=== PATIENT | female | born 1955 | race Caucasian/White ===

== ENCOUNTER → 2021-05-11 13:13 | Outpatient (CLI) | payer MEDICARE, SELFPAY ==
--- NOTE | ~2021-05-11 | MM_ITS ---
EXAMINATION: MM screening gloria BI w mita HISTORY: Screening mammogram TECHNIQUE: Craniocaudal and mediolateral oblique 3-D tomosynthesis images were obtained and synthetic 2-D images were generated. CAD analysis was submitted and interpreted. COMPARISON: 12/20/2017 bilateral digital screening mammogram 11/30/2016 diagnostic right mammogram and limited right breast bilateral digital screening mammogram BREAST PARENCHYMAL COMPOSITION: There are scattered areas of fibroglandular density. FINDINGS: There is no evidence of suspicious mass, calcification, or architectural distortion to sugg est malignancy in either breast. There has been no suspicious interval change. IMPRESSION: 1. No mammographic evidence of malignancy. 2. Recommend routine screening mammography in one year. BI-RADS Category 1: Negative Reviewed, dictated and finalized at location A.
== END ==
PROVIDERS: PCP Family Medicine; Visit Provider Nurse Practitioner
DX: Z12.31 Encounter for screening mammogram for malignant neoplasm of breast (principal)
CPT/HCPCS: 77063; 77067

== ENCOUNTER → 2021-05-11 13:15 | Outpatient (CLI) | payer MEDICARE, SELFPAY ==
--- NOTE | ~2021-05-11 | US_ITS ---
EXAMINATION: US thyroid DATE: 05/11/2021 13:58 INDICATION: Nontoxic multinodular goiter TECHNIQUE: Multiple ultrasound images of the thyroid were obtained. COMPARISON: None. FINDINGS: The right thyroid lobe measures 6.5 x 2.4 x 2.2 cm. The left thyroid lobe measures 6.8 x 3.1 x 2.0 c m. No interval change in size of the 2 largest thyroid nodules which measure 3.[address] maximal diame ter on the left and 2.6 cm on the right, both with previous biopsies performed on 01/10/2017 demonstra ting benign pathology. Also unchanged is a 1.1 cm rim calcified TI-RADS 4 nodule in the mid right thy roid. Interval decrease in size of a previously 1.7 cm, currently 1.4 cm mixed solid and cystic TI RA DS 3 nodule in the mid left thyroid. There are a few additional <1.4 cm TI RADS 3 and TI RADS 4 bila teral thyroid nodules. IMPRESSION: 1. Multinodular goiter with stable appearance of the largest and most concerning thyroid nodules, the largest 2 of which have demonstrated prior benign biopsies. There are a few new smaller thyroid nodu les for which annual follow-up would be indicated. Reviewed, dictated and finalized at location A. IMPRESSION: 1. Multinodular goiter with stable appearance of the largest and most concernin g thyroid nodules, the largest 2 of which have demonstrated prior benign biopsi es. There are a few new smaller thyroid nodules for which annual follow-up woul d be indicated.
== END ==
PROVIDERS: PCP Family Medicine; Visit Provider Otolaryngology
DX: E04.2 Nontoxic multinodular goiter (principal)
CPT/HCPCS: 76536

== ENCOUNTER → 2021-07-07 11:03 | Outpatient (CLI) | payer MEDICARE, SELFPAY ==
--- NOTE | ~2021-07-07 | DEXA_ITS ---
Bone Density Report Name: CASSY SANDOVAL Age: 66 Sex: Female Ethnicity: White Date of : 1955 Indication: osteopenia; height loss; postmenopausal Referring Provider: Lou Del Valle Study: Bone densitometry was performed. Exam Date: July 07, 2021 Accession number: [id number] Bone Density: Region BMD T-score Z-score Classification AP Spine (L1-L4) 1.004 -0.4 1.6 Normal Femoral Neck (Left) 0.574 -2.5 -0.8 Osteoporosis Total Hip (Left) 0.749 -1.6 -0.2 Osteopenia Femoral Neck (Right) 0.604 -2.2 -0.5 Osteopenia Total Hip (Right) 0.748 -1.6 -0.2 Osteopenia Total Hip Mean 0.749 -1.6 -0.2 Osteopenia World Health Organization criteria for BMD impression classify patients as: Normal (T-score at or above -1.0), Osteopenia (T-score between -1.0 and -2.5), or Osteoporosis (T-score at or below -2.5). 10-year Fracture Risk: FRAX not reported because: Some T-score for Spine Total or Hip Total or Femoral Neck at or below -2.5 Previous Exams: Region Exam Age BMD T-score BMD Change BMD Change Date g/cm2 vs Baseline vs Previous AP Spine(L1-L4) 07/07/2021 66 1.004 -0.4 0.027* 0.004 11/19/2016 61 0.999 -0.4 0.022 0.022 09/19/2012 57 0.977 -0.6 Total Hip(Left) 07/07/2021 66 0.749 -1.6 -0.156 -0.004 11/19/2016 61 0.753 -1.5 -0.152 -0.024 09/19/2012 57 0.777 -1.4 -0.128 -0.128 01/22/2004 48 0.906 -0.3 Total Hip(Right) 07/07/2021 66 0.748 -1.6 -0.160 0.005 11/19/2016 61 0.743 -1.6 -0.165 -0.016 09/19/2012 57 0.759 -1.5 -0.149 -0.149 01/22/2004 48 0.908 -0.3 *Denotes significance at 95% confidence level, LSC for AP Spine = 0.022 g/cm2, LSC for Total Hip = 0.027 g/cm2 Clinical Information Provided by Patient: Smokes Has used the following medications: Vitamin D Patient maximum height was 67.7 Menopause Age: 50 Does not regularly consume dairy products Drinks caffeinated beverages Onset of menses at age 10 Number of children 0 Impression: The patient has osteoporosis, based on the Left Femoral Neck T-score. The patient has risk factors, including: smoking. No significant bone loss was observed. Discussion: INCREASED RISK OF FRACTURE. BONE DENSITY IS UNDESIRABLY LOW AT ONE OR MORE SKELETAL SITES, CONSISTENT WITH POSTMENOPAUSAL OSTEOPOROSIS. This patient's lowest T-score
== END ==
PROVIDERS: PCP Family Medicine; Visit Provider Nurse Practitioner
DX: Z78.0 Asymptomatic menopausal state (principal); M81.0 Age-related osteoporosis without current pathological fracture; M85.851 Other specified disorders of bone density and structure, right thigh
CPT/HCPCS: 77080

== ENCOUNTER 2023-05-26 09:02 | Outpatient (CLI) | payer MEDICARE, SELFPAY ==
--- NOTE | ~2023-05-26 | PE_ITS ---
EXAMINATION: PET skull to mid thigh DATE: 05/26/2023 11:05 INDICATION: Solitary pulmonary nodule TECHNIQUE: Blood glucose level was 106 mg/dL. 10.129 mCi of 18-fluorodeoxyglucose (18-FDG) was admini stered i.v. Low dose computed tomography (CT) images were acquired from the base of the brain to the proximal thighs for attenuation correction and anatomic localization. Positron emission tomography (P ET) images were acquired in the same distribution beginning 66 minutes after injection. Images includ ing fused PET/CT images were reconstructed in axial, coronal, and sagittal planes. Automated exposure control technique was employed. The dose-length product was 814.28mGy-cm. COMPARISON: None FINDINGS: Head/neck: There is symmetric increased activity in the oral cavity, inguinal tonsils, laryngeal muscles and ocu lar muscles without CT correlate, likely physiologic. Relatively symmetric pattern of multiple foci o f prominent increased FDG uptake in the fat primarily in the posterior upper cervical paraspinal fat and more caudally in the bilateral supraclavicular regions without radiologic correlate which is atyp ical distribution for brown fat. No pathologically enlarged cervical lymphadenopathy. Chest: Additional extensive symmetric pattern of multiple foci of increased FDG uptake in the periaortic fat , in the paraspinal and posterior intercostal fat and in the anterior intercostal fat along the later al margin of the sternum, all without radiologic correlate and again in a typical distribution for br own fat. Mild emphysema. 1.4 x 0.6 cm right apical nodule without evident FDG activity. Additional sm aller and more caudal 6 mm right upper lobe nodule also without evident FDG activity. No other suspic ious pulmonary nodules, pneumonia or pleural effusion. Arch size is normal. No pericardial effusion. Thoracic aorta is normal in caliber. No pathologically enlarged thoracic lymphadenopathy. Abdomen/pelvis/proximal thighs: Physiologic renal accumulation and excretion of FDG activity in the kidneys, bladder and along portio ns of ureters. Normal degree and heterogenous pattern of increased uptake throughout the liver withou t radiologic correlate or dominant FDG avid lesion. The gallbladder, pancreas, spleen and bilateral a drenal glands are normal. Mild uptake scattered throughout the bowels without radiologic correlate, a lso likely physiologic. Normal appendix. No other abnormal foci of increased FDG uptake or pathologic ally enlarged lymphadenopathy in the abdomen, pelvis or proximal thighs. Musculoskeletal: Severe cervical and lumbosacral spondylosis with mild to moderate spondylosis of the intervening thor acic and lumbar spine. The neck L1 compression fracture with 20% anterior vertebral body height loss. Mild likely degenerative uptake at the bilateral ischial tuberosities. Single small region of mild i ncreased FDG uptake at the base of the left lesser trochanter with maximal SUV of 3.0 cm correspondin g lytic or blastic bone lesion. IMPRESSION: 1. Mild emphysema with no evident FDG activity associated with a couple right upper lobe pulmonary no dules. While reassuring would recommend 6 month follow-up low-dose noncontrast chest CT with comparis on with any prior outside imaging. 2. Symmetric pattern of numerous foci of increased FDG uptake in the soft tissues of the neck, chest wall and para-aortic fat with typical distribution for brown fat. 3. Indeterminate small region of mild increased FDG uptake at the base of the right greater trochante r which is without radiologic correlate. Malignancy is unlikely in the absence of a known primary mal ignancy or additional bone lesions but if there is clinical concern could consider further evaluation with pre and postcontrast MRI. Reviewed, dictated and finalized at location A. Electronically signed by Oh Roberts
[2023-05-26 09:32] LABS: Glucose Point of Care 106 mg/dl (65-105)
== END 2023-05-26 09:03 | disposition home or self-care (01) ==
PROVIDERS: PCP Family Medicine; Visit Provider Family Medicine
DX: R91.1 Solitary pulmonary nodule (principal); J43.9 Emphysema, unspecified; R91.8 Other nonspecific abnormal finding of lung field
CPT/HCPCS: 78815; A9552

== ENCOUNTER 2023-11-15 07:26 | Outpatient (CLI) | payer MEDICARE, SELFPAY ==
[2023-11-15 08:06] LABS: Alanine Aminotransferase 26 U/L (6-35); Albumin Level 4.9 g/dL (3.5-5.1); Alkaline Phosphatase 110 U/L (38-126); Anion Gap 8 mmol/L (4-12); Aspartate Amino Transferase 89 U/L (14-36); Bilirubin,Total 0.8 mg/dL (0.2-1.3); Blood Urea Nitrogen 28 mg/dL (7-17); Calcium 10.3 mg/dL (8.4-10.2); Carbon Dioxide 28 mmol/L (22-30); Chloride 103 mmol/L (98-107); Estimated Glomerular Filt Rate > 60; Glucose 107 mg/dL (65-110); Potassium 3.7 mmol/L (3.4-5.0); Sodium 139 mmol/L (137-145)
== END 2023-11-15 07:27 | disposition home or self-care (01) ==
LOC: ANHLAB 07:28
PROVIDERS: PCP Family Medicine; Visit Provider Family Medicine
DX: R74.01 Elevation of levels of liver transaminase levels (principal); I10 Essential (primary) hypertension
CPT/HCPCS: 36415; 80053

== ENCOUNTER 2024-05-31 06:49 | Outpatient (CLI) | payer MEDICARE, SELFPAY ==
[2024-05-31 08:23] LABS: Basophils Absolute Auto 0.1 K/mm3 (0.0-0.1); Basophils Percent Auto 0.8 % (0.2-1.2); Eosinophils Absolute Auto 0.1 K/mm3 (0-0.3); Eosinophils Percent Auto 1.9 % (0-4.4); Hematocrit 43.3 % (37.0-47.0); Hemoglobin 14.6 g/dL (12.0-15.0); Immature Granulocyte Absolute 0.03 K/mm3 (0.00-0.031); Immature Granulocyte Percent A 0.5 % (0-0.5); Lymphocytes Absolute Auto 2.32 K/mm3 (0.9-3.2); Lymphocytes Percent Auto 36.4 % (18.3-44.2); Mean Corpuscular HGB Conc 33.7 g/dl (32-36); Mean Corpuscular Hemoglobin 32.1 pg (26-34); Mean Corpuscular Volume 95.2 fl (80-100); Mean Platelet Volume 10.9 fl (7.4-10.4); Monocytes Absolute Auto 0.5 K/mm3 (0.1-0.6); Monocytes Percent Auto 7.8 % (2.6-8.5); Neutrophils Absolute Auto 3.4 K/mm3 (1.3-6.7); Neutrophils Percent Auto 52.6 % (45.5-73.1); Platelet Count Result 247 k/mm3 (150-375); Red Blood Count 4.55 M/mm3 (4.2-5.4); Red Cell Distribution Width 13.5 % (11.5-14.5); White Blood Count 6.4 K/mm3 (4.5-10.0)
[2024-05-31 09:33] LABS: Cholesterol 179 mg/dL (0-200); HDL Direct 94 mg/dL; Triglycerides 74 mg/dL (<150)
[2024-05-31 09:44] LABS: LDL Cholesterol Direct 63 mg/dL
[2024-05-31 09:53] LABS: Free T4 Free Thyroxine 1.12 ng/mL (0.78-2.19)
[2024-06-01 09:23] LABS: Triiodothyronine T3 Free 3.2 pg/mL (2.3-4.2)
[2024-06-06 14:38] LABS: Vitamin D 1,25 (OH)2 Total 49 pg/mL (18-72); Vitamin D2 1,25 (OH)2 <8 pg/mL; Vitamin D3 1,25 (OH)2 49 pg/mL
== END 2024-05-31 06:50 | disposition home or self-care (01) ==
LOC: ANHLAB 06:54
PROVIDERS: PCP Family Medicine; Visit Provider Nurse Practitioner Family
DX: E04.2 Nontoxic multinodular goiter (principal); E78.5 Hyperlipidemia, unspecified; I10 Essential (primary) hypertension; E55.9 Vitamin D deficiency, unspecified
CPT/HCPCS: 36415; 80061; 82652; 84439; 84443; 84481; 85025

== ENCOUNTER 2024-06-04 11:33 | Outpatient (CLI) | payer MEDICARE, SELFPAY ==
[2024-06-04 19:33] LABS: Alanine Aminotransferase 30 U/L (6-35); Albumin Level 4.5 g/dL (3.5-5.1); Alkaline Phosphatase 126 U/L (38-126); Anion Gap 7 mmol/L (4-12); Aspartate Amino Transferase 119 U/L (14-36); Bilirubin,Total 0.5 mg/dL (0.2-1.3); Blood Urea Nitrogen 22 mg/dL (7-17); Calcium 9.5 mg/dL (8.4-10.2); Carbon Dioxide 30 mmol/L (22-30); Chloride 102 mmol/L (98-107); Estimated Glomerular Filt Rate > 60; Glucose 95 mg/dL (65-110); Potassium 3.6 mmol/L (3.4-5.0); Sodium 139 mmol/L (137-145)
[2024-06-04 21:56] LABS: Hemoglobin A1C 5.8 % (<5.7)
== END 2024-06-04 11:34 | disposition home or self-care (01) ==
LOC: ANHGOSHLAB 11:34
PROVIDERS: PCP Family Medicine; Visit Provider Family Medicine
DX: R73.9 Hyperglycemia, unspecified (principal); I10 Essential (primary) hypertension
CPT/HCPCS: 36415; 80053; 83036

== ENCOUNTER 2024-06-07 10:21 | Outpatient (CLI) | payer MEDICARE, SELFPAY ==
--- NOTE | ~2024-06-07 | CT_ITS ---
Clinical Indication: Nonspecific abnormal finding of lung field, pulmonary nodules CT Scan of the Chest with Contrast: Technique: Contiguous sections were acquired throughout the chest after intravenous administration of 75 cc of Omnipaque 350. Dose reduction technique was used on this scan by utilizing automated exposu re control and iterative reconstruction technique. The dose-length product (DLP) was 155.49 mGy-cm. COMPARISON: PET/CT dated 05/26/2023 stable 6 mm right upper lobe pulmonary nodule (axial image 38). Findings: There is no evidence of any significant mediastinal, hilar or axillary lymphadenopathy. There is no f illing defect in the pulmonary arterial tree to suggest pulmonary embolus. There is no evidence of ao rtic dissection or aneurysm. There is no evidence of pleural or pericardial effusion. Moderate to advanced emphysema present. Stable probable focal scarring versus nodule at the right taya g apex. Images through the upper abdomen reveal no abnormalities. Chronic compression deformity of L2 noted. Impression: Stable subcentimeter right upper lobe pulmonary nodules, as detailed above. Moderate to advanced emphysema. Reviewed, dictated and finalized at location . TRANSITIONAL CARE Impression: Stable subcentimeter right upper lobe pulmonary nodules, as detailed above. Moderate to advanced emphysema.
[2024-06-07 10:57] LABS: Estimated Glomerular Filt Rate > 60
== END 2024-06-07 10:22 | disposition home or self-care (01) ==
LOC: MICIMG 10:22
PROVIDERS: PCP Family Medicine; Visit Provider Family Medicine
DX: R91.8 Other nonspecific abnormal finding of lung field (principal); J43.9 Emphysema, unspecified
CPT/HCPCS: 71260; Q9967

== ENCOUNTER 2024-12-04 09:04 | Outpatient (CLI) | payer MEDICARE, SELFPAY ==
--- OUTSIDE RECORDS SUMMARY | 2024-12-04 09:12 | XMS_ITS | Continuity of Care Document ---
Author Organization [facility] [place] Address [address] [place] [address] [address] [place] [address] Phone Care Team Providers Care Tree And Shrub Technician Name Role Phone Mary Akins Unavailable Unavailable Procedures Procedure Date Eye Exam & Treatment Refraction Eye Exam & Treatment Refraction Office/outpatient Visit, Est Optic Nerve Topography Optic Nerve Topography Eye Exam Established Pt Fundus Photography W/ Report Refraction Advance Directives Directive Yes / No Effective Date File Name No Information Encounters Encounter Description Practice Location Reason(s) For Visit Diagnoses Date Provider Providers Copied on Encounter [facility], [address] [place] [address] [address], [place], [place], [id number], tel:[phone] [facility] No Information 7-201 0 Mable Jerome [address] , [address], [place], [address], [place]. tel:[phone] [facility], [address] [place] [address] [address], [place], [place], [id number], [place] tel:[phone] [facility] No Information 0-200 9 Mable Jerome [address] , [address], [place], [address], [place]. tel:[phone] Office/outpat ient Visit, Est [facility], [address] [place] [address] [address], [place], [place], [id number], tel:[phone] [facility] No Information Dec-0 7-200 7 Mable Jerome [address] , [address], [place], [place], [facility], . tel:[phone] [facility], [address] [place] [address] [address], [place], [place], [id number], tel:[phone] [facility] No Information Mar-2 0-200 7 Mable Jerome [address] , [address], [place], [place], [facility], . tel:[phone] Referring Provider: Mary Driver, [address], [place], [facility]. tel:[phone] [facility], [address] [place] [address] [address], [place], [place], [id number], tel:[phone] [facility] No Information Feb-0 9-200 7 Mable [facility] [address] , [address], [place], [place], [facility], . tel:[phone] Referring Provider: Mary Driver, [address], [place], [place], [facility]. tel:[phone] Family History Family Member Type Diagnosis Age At Onset No Information Payers Payer name Insurance type Covered democrat ID Sky laukandi(s) [employer] Plan [id number] Social History Type Description Quantity Date Captured Comments Sex Female Smoking Status No Information Chief Complaint And Reason For Visit No Information Reason For Referral Reason For Referral No Information History Of Present Illness Encounter Date Complaint History Of Prese nt Illness No Information Functional Status Date Functional Assessmen t No Information Instructions Date Instruction Additional Infor mation No Information Assessments Type Assessment Date No Information Patient Care Teams Name Effective Dates (start - stop) Status Members No Information
--- OUTSIDE RECORDS SUMMARY | 2024-12-04 09:12 | XMS_ITS | Clinical Summary ---
Author Organization [facility] [address] Address [address] [place] [address] Care Team Providers Care Bi Specialist Name Role Phone Mehul Montelongo Primary Care Provider [phone] Allergies Active Allergy Reactions Criticality Noted Date Comments Progesterone Micronized Other (See comments) Low Soxadte-Jbv-Hcl Reductase Inhibitors Muscle pain Medium 03/19/2014 Unclassified Drug Shortness of breath High 4 Medications amLODIPine (NORVASC) 5 mg tablet Take 1 tablet (5 mg total) by mouth daily Active bimatoprost (LUMIGAN) 0.03 % ophthalmic drops 1 drop daily Active calcium carbonate (OS-MIRIAN) 1,500 mg (600 mg elemental) tablet Take 1,200 mg by mouth daily Active cholecalciferol (VITAMIN D-3) 50,000 unit capsule Take 1 capsule (50,000 Units total) by mouth once a week Active lisinopril-hydr oCHLOROthiazide (ZESTORETIC) 20-25 mg per tablet Take 1 tablet by mouth Active rosuvastatin (CRESTOR) 10 mg tablet Take 1 tablet (10 mg total) by mouth nightly 05/01/2024 Active Active Problems No known active problems Social History Tobacco Use Types Packs/Day Years Used Date Smoking Tobacco: Never Assessed Comments Unknown Sex and Gender Information Value Date Recorded Sex Assigned at Not on file Legal Sex Female 7:03 AM DRY CLEANER HAND Gender Identity Not on file Sexual Orientation Not on file Obstetrics History Last Filed Vital Signs Vital Sign Reading Time Taken Comments Blood Pressure 130/90 08/08/2024 4:02 PM DRY CLEANER HAND Pulse 85 08/08/2024 4:02 PM DRY CLEANER HAND Temperature 36.8 C (98.2 F) 08/08/2024 4:02 PM DRY CLEANER HAND Respiratory Rate 20 08/08/2024 4:02 PM DRY CLEANER HAND Oxygen Saturation 97% 08/08/2024 4:02 PM DRY CLEANER HAND Inhaled Oxygen Concentration - - Weight 65.8 kg (145 lb) 08/08/2024 4:02 PM DRY CLEANER HAND Height - - Body Mass Index - - Plan of Treatment Health Maintenance Due Date Last Done Comments Breast Cancer Screening-Mammogram 1955 Colon Cancer Screening-Colonoscopy 1955 Depression Screening 1955 Fall Risk Assessment 1955 Hepatitis C Screening 1955 Osteoporosis Screening-Bone Density Scan 1955 DTaP/Tdap/Td Vaccine (1 - Tdap) 1964 Hepatitis B Screening 1971 Zoster Vaccine (1 of 2) 2003 Well Visit 65+ 2018 Covid-19 Vaccine (2023-2 5 season) 2024 06/17/2023, 05/24/2022, 12/07/2021, Additional history exists Pneumococcal vaccine 65+ Completed 06/17/2023 Influenza Vaccine Completed 06/04/2024, , 05/23/2022, Additional history exists Insurance Shelton MAGDALENO [place] [id number] [facility] MEDICARE ADVANTAGE [facility] MEDICARE Address: [facility] [address] [place] [address] Care Teams Bi Specialist Relationship Specialty Start Date End Date Mehul Montelongo [address] [place] [address] PCP - General 11/25/16
--- OUTSIDE RECORDS SUMMARY | 2024-12-04 09:12 | XMS_ITS | Referral Summary ---
Author Organization [facility] [place] [address] Address [address] [place] [address] Care Team Providers Care Sewer Pipe Sorter Name Role Phone Mehul Montelongo Primary Care Provider Allergies Active Allergy Reactions Criticality Noted Date Comments Progesterone Micronized Other (See comments) Low Xrlmnml-Etq-Yls Reductase Inhibitors Muscle pain Medium 03/19/2014 Unclassified [...] on file Legal Sex Female 7:03 AM RIPSAW OPERATOR Gender Identity Not on file Sexual Orientation Not on file Last Filed Vital Signs Vital Sign Reading Time Taken Comments Blood Pressure 130/90 08/08/2024 4:02 PM RIPSAW OPERATOR Pulse 85 08/08/2024 4:02 PM RIPSAW OPERATOR Temperature 36.8 C (98.2 F) 08/08/2024 4:02 PM RIPSAW OPERATOR Respiratory Rate 20 08/08/2024 4:02 PM RIPSAW OPERATOR Oxygen Saturation 97% 08/08/2024 4:02 PM RIPSAW OPERATOR Inhaled Oxygen Concentration - - Weight 65.8 kg (145 lb) 08/08/2024 4:02 PM RIPSAW OPERATOR Height - - Body Mass Index - - Plan of Treatment Not on file Insurance [facility] MEDICARE ADVANTAGE Care Teams Sewer Pipe Sorter Relationship Specialty Start Date End Date Mehul Montelongo [address] [place] [address] PCP - General 11/25/16
--- OUTSIDE RECORDS SUMMARY | 2024-12-04 09:12 | XMS_ITS | Clinical Summary ---
Author Organization [facility] Address [address] [place] [address] Phone Care Team Providers Care Metalworking Instructor Name Role Phone Mehul Montelongo MD Primary Care Provider [phone] Allergies Active Allergy Reactions Criticality Noted Date Comments Xqxizsb-Xlw-Jck Reductase Inhibitors Muscle Pain Low 03/19/2014 Unclassified Drug Shortness of Breath/Wheezing High 03/19/2014 Medications lisinopril-hydro chlorothiazide (ZESTORETIC) 20-25 mg tablet Take 1 Tab by mouth Daily LATE. Active amLODIPine (NORVASC) 5 mg tablet Take 5 mg by mouth Daily LATE. Active cholecalciferol, vitamin D3, 50,000 unit Capsule Take 1 Cap by mouth every 7 days. Active calcium carbonate (CALCIUM 600) 600 mg (1,500 mg) Tablet Take 1,200 mg by mouth daily. Active bimatoprost (LUMIGAN) 0.03 % solution 1 Drop daily at bedtime. Active Active Problems Problem Noted Date Diagnosed Date Cyst of mandible 04/09/2014 Social History Tobacco Use Types Packs/Day Years Used Date Smoking Tobacco: Every Day Cigarettes 1 40 Smokeless Tobacco: Never Alcohol Use Standard Drinks/Week Comments Yes 0 (1 standard drink = 0.6 oz pur e alcohol) social Comments No Sex and Gender Information Value Date Recorded Sex Assigned at Not on file Legal Sex Female 3:27 PM CDT Gender Identity Not on file Sexual Orientation Not on file Last Filed Vital Signs Vital Sign Reading Time Taken Comments Blood Pressure 118/67 04/09/2014 3:47 PM CDT Pulse 61 04/09/2014 3:47 PM CDT Temperature 36.2 C (97.1 F) 04/09/2014 3:47 PM CDT Respiratory Rate 18 04/09/2014 3:47 PM CDT Oxygen Saturation 97% 04/09/2014 3:47 PM CDT Inhaled Oxygen Concentration - - Weight 70.3 kg (155 lb) 03/19/2014 11:21 AM CDT Height 165.1 cm (5' 5 ) 03/19/2014 11:21 AM CDT Body Mass Index 25.79 03/19/2014 11:21 AM CDT Plan of Treatment Health Maintenance Due Date Last Done Comments DTAP/TDAP/TD VACCINES (1 - Tdap) 1972 PNEUMOCOCCAL VACCINE 50+ YEARS (1 of 2 - PCV) 03/10/19 72 BREAST CANCER SCREENING 1993 COLORECTAL SCREENING 1998 Colorectal Cancer Screening 1998 FIT-DNA Q 3 years 1998 FIT/FOBT Q 1 year 1998 Flex Sig/CT Colonography Q 5 years 1998 ZOSTER VACCINE (1 of 2) 2003 OSTEOPOROSIS SCREENING 2018 INFLUENZA VACCINE (#1) 2024 RSV VACCINE (60+ or ) (1 - 1-dose 75+ series) 2028 Medical Devices Implanted Type Area Trauma Counsellor Device Identifier Shelf Expiration Date Model / Serial / Lot Putty Osteoselect Dbm 2.5ml [id number] - [id number] Implanted:Qty: 1 on 04/09/2014 by Farhad Estrada DDS at [facility] [employer] 04/11/2014 [id number] / / [id number] Dental Implants Implanted:(Quanti ty not on file) Explanted:(Quanti ty not on file) Insurance RX [facility] DATA Medicare Part B Advance Directives For more information, please contact: [phone] * Full Code (Latest Code Status on File) Date Activated Date Inactivated Comments 04/09/2014 12:20 PM 04/09/2014 5:59 PM Care Teams Metalworking Instructor Relationship Specialty Start Date End Date Mehul Montelongo MD [address] [place] [address] PCP - General Family Practice 03/19/14
[2024-12-04 13:27] LABS: Alanine Aminotransferase 38 U/L (6-35); Albumin Level 4.7 g/dL (3.5-5.1); Alkaline Phosphatase 116 U/L (38-126); Anion Gap 9 mmol/L (4-12); Aspartate Amino Transferase 134 U/L (14-36); Bilirubin,Total 0.6 mg/dL (0.2-1.3); Blood Urea Nitrogen 22 mg/dL (7-17); Calcium 9.6 mg/dL (8.4-10.2); Carbon Dioxide 30 mmol/L (22-30); Chloride 100 mmol/L (98-107); Estimated Glomerular Filt Rate > 60; Glucose 93 mg/dL (65-110); Potassium 3.5 mmol/L (3.4-5.0); Sodium 139 mmol/L (137-145)
[2024-12-04 23:19] LABS: Hemoglobin A1C 5.4 % (<5.7)
== END 2024-12-04 09:05 | disposition home or self-care (01) ==
PROVIDERS: PCP Family Medicine; Visit Provider Family Medicine
DX: I10 Essential (primary) hypertension (principal); R74.01 Elevation of levels of liver transaminase levels; R73.03 Prediabetes
CPT/HCPCS: 36415; 80053; 83036

== ENCOUNTER 2025-02-08 04:04 | Emergency (ER) | payer MEDICARE, SELFPAY ==
--- NOTE | ~2025-02-08 | CT_ITS ---
Non-contrast CT scan of the Abdomen and Pelvis Clinical indication: Right flank pain Technique: 2.5 mm axial scans were obtained through the abdomen and pelvis without intravenous or or al contrast. Dose reduction technique was used on this scan by utilizing automated exposure control a nd iterative reconstruction technique. The dose-length product (DLP) was 209.35 mGy-cm. Findings: Images through the lung bases reveal no abnormalities. Punctate bilateral nonobstructing renal stones are present. Suspected 5 mm ovoid stone at the right U VJ. Possible minimal right hydronephrosis. No definite left ureteral stone. The liver, spleen, pancreas, gallbladder, and adrenals appear normal. There are atherosclerotic calci fications of the aorta. . There is no evidence of bowel obstruction. Images through the pelvis were performed. There is no evidence of ascites or lymphadenopathy. Urinary bladder otherwise unremarkable. No definite pelvic mass seen. No definite ascites. Impression: Suspected 5 mm ovoid stone at the right UVJ, though evaluation is difficult due to paucity of intra-a bdominal fat. Possible minimal right hydronephrosis. Punctate bilateral nonobstructing additional renal stones. Reviewed, dictated and finalized at [facility]. Impression: Suspected 5 mm ovoid stone at the right UVJ, though evaluation is difficult due to paucity of intra-abdominal fat. Possible minimal right hydronephrosis. Punctate bilateral nonobstructing additional renal stones.
[2025-02-08 04:06] VITALS: BP 163/78; PULSE 62; RESP 18; TEMP 36.9; O2SAT 99
--- OUTSIDE RECORDS SUMMARY | 2025-02-08 04:07 | XMS_ITS | Clinical Summary ---
Author Organization [facility] Address [address] [place] [phone] Phone Care Team Providers Care Rate And Cost Analyst Name Role Phone Mehul Montelongo MD Primary Care Provider [phone] Allergies Active Allergy Reactions Criticality Noted Date Comments Gpaqydk-Oki-Ekz Reductase Inhibitors Muscle Pain Low 03/19/2014 Unclassified [...] 11:21 AM CDT Height 165.1 cm (5' 5) 03/19/2014 11:21 AM CDT Body Mass Index [...] 2003 OSTEOPOROSIS SCREENING 2018 INFLUENZA VACCINE (#1) 2025 RSV VACCINE (60+ or ) (1 - 1-dose 75+ series) 2028 Medical Devices Implanted Type Area Fire Protection Fabricator Device Identifier Shelf Expiration Date Model / Serial / Lot Putty Osteoselect Dbm 2.5ml [id number] - [id number] Implanted:Qty: 1 on 04/09/2014 by Farhad Estrada DDS at [facility] [employer] 04/11/2014 [id number] / / [id number] Dental Implants Implanted:(Quanti ty not on file) Explanted:(Quanti ty not on file) Insurance RX [facility] DATA Medicare Part B Advance Directives For more information, please contact: [phone] * Full Code (Latest Code Status on File) Date Activated Date Inactivated Comments 04/09/2014 12:20 PM 04/09/2014 5:59 PM Care Teams Rate And Cost Analyst Relationship Specialty Start Date End Date Mehul Montelongo MD [address] [place] [address] PCP - General Family Practice 03/19/14
--- OUTSIDE RECORDS SUMMARY | 2025-02-08 04:07 | XMS_ITS | Clinical Summary ---
Author Organization [facility] [address] Address [address] [place] [address] Care Team Providers Care Maritime Officer Name Role Phone Mehul Montelongo Primary Care Provider [phone] Allergies Active Allergy Reactions Criticality Noted Date Comments Progesterone Micronized Other (See comments) Low Dyimnkw-Prx-Bqs Reductase Inhibitors Muscle pain Medium 03/19/2014 Unclassified [...] on file Legal Sex Female 7:03 AM MACHINE COIL ASSEMBLER Gender Identity Not on file Sexual Orientation Not on file Obstetrics History Last Filed Vital Signs Vital Sign Reading Time Taken Comments Blood Pressure 130/90 08/08/2024 4:02 PM MACHINE COIL ASSEMBLER Pulse 85 08/08/2024 4:02 PM MACHINE COIL ASSEMBLER Temperature 36.8 C (98.2 F) 08/08/2024 4:02 PM MACHINE COIL ASSEMBLER Respiratory Rate 20 08/08/2024 4:02 PM MACHINE COIL ASSEMBLER Oxygen Saturation 97% 08/08/2024 4:02 PM MACHINE COIL ASSEMBLER Inhaled Oxygen Concentration - - Weight 65.8 kg (145 lb) 08/08/2024 4:02 PM MACHINE COIL ASSEMBLER Height - - Body Mass Index - [...] 05/23/2022, Additional history exists Insurance Shelton MAGDALENO [place] [id number] [facility] MEDICARE ADVANTAGE [facility] MEDICARE Address: [facility] [address] [place] [address] Care Teams Maritime Officer Relationship Specialty Start Date End Date Mehul Montelongo [address] [place] [address] PCP - General 11/25/16
--- OUTSIDE RECORDS SUMMARY | 2025-02-08 04:07 | XMS_ITS | Referral Summary ---
Author Organization [facility] [place] [address] Address [address] [place] [address] Care Team Providers Care Nipple Threader Name Role Phone Mehul Montelongo Primary Care Provider [phone] Allergies Active Allergy Reactions Criticality Noted Date Comments Progesterone Micronized Other (See comments) Low Lyjcdoq-Kxr-Saw Reductase Inhibitors Muscle pain Medium 03/19/2014 Unclassified [...] on file Legal Sex Female 7:03 AM TOP COLLAR BASTER Gender Identity Not on file Sexual Orientation Not on file Last Filed Vital Signs Vital Sign Reading Time Taken Comments Blood Pressure 130/90 08/08/2024 4:02 PM TOP COLLAR BASTER Pulse 85 08/08/2024 4:02 PM TOP COLLAR BASTER Temperature 36.8 C (98.2 F) 08/08/2024 4:02 PM TOP COLLAR BASTER Respiratory Rate 20 08/08/2024 4:02 PM TOP COLLAR BASTER Oxygen Saturation 97% 08/08/2024 4:02 PM TOP COLLAR BASTER Inhaled Oxygen Concentration - - Weight 65.8 kg (145 lb) 08/08/2024 4:02 PM TOP COLLAR BASTER Height - - Body Mass Index - - Plan of Treatment Not on file Insurance [facility] MEDICARE [facility] Address: [facility] [address] [place] [address] Care Teams Nipple Threader Relationship Specialty Start Date End Date Mehul Montelongo [address] [place] [address] PCP - General 11/25/16
--- OUTSIDE RECORDS SUMMARY | 2025-02-08 04:07 | XMS_ITS | Continuity of Care Document ---
Author Organization [facility] [place] Address [address] [place] [address] [address] [place] [address] Phone Care Team Providers Care Cfo Name Role Phone Mary Akins Unavailable Unavailable [...] Diagnoses Date Provider Providers Copied on Encounter [facility], [address] [place] [address] [address], [place], [place], [id number], tel:[phone] SEC [facility][note 3] No Information 7-201 0 Mable Jerome [address] [facility] , [address], [place], [address], [place]. tel:[phone] [facility], [address] [place] [address] [address], [place], [place], [id number], [place] tel:[phone] SEC [facility] No Information 0-200 9 Mable Jerome [address] [facility] , [address], [place], [address], [place]. tel:[phone] Office/outpat ient Visit, Est [facility], [address] [place] [address] [address], [place], [place], [id number], tel:[phone] SEC [facility] No Information Dec-0 7-200 7 Mable Jerome [address] [facility] , [address], [place], [place], [facility] [place], . tel:[phone] [facility], [address] [place] [address] [address], [place], [place], [id number], tel:[phone] SEC [facility] No Information Mar-2 0-200 7 Mable Jerome [address] [facility] , [address], [place], [place], [facility] [place], . tel:[phone] Referring Provider: Mary Driver, [address] [facility] [address], [place], [facility] [place] [facility] [place]. tel:[phone] [facility], [address] [place] [address] [address], [place], [place], [id number], tel:[phone] [facility] No Information Feb-0 9-200 7 Mable Jerome [facility] , [address], [place], [facility] [facility] [place], . tel:[phone] Referring Provider: Mary Driver, [address] [facility] [address], [place], [facility] [place] [facility] [place]. tel:[phone] Family History Family Member Type Diagnosis Age At Onset No Information Payers Payer name Insurance type Covered constitution party ID Sky laukandi(s) [employer] Plan [id number] Social History Type Description Quantity Date Captured [...]
[2025-02-08 04:41] LABS: Hematocrit 41.5 % (37.0-47.0); Hemoglobin 13.6 g/dL (12.0-15.0); Immature Granulocyte Percent A 0.5 % (0-0.5); Lymphocytes Absolute Auto 1.96 K/mm3 (0.9-3.2); Mean Corpuscular HGB Conc 32.8 g/dl (32-36); Mean Corpuscular Hemoglobin 30.9 pg (26-34); Mean Corpuscular Volume 94.3 fl (80-100); Nucleated Red Blood Cells Absolute Auto 0.000 K/mm3 (0.0-0.012); Nucleated Red Blood Cells Perc 0.0 % (0.0-0.2); Platelet Count Result 231 k/mm3 (150-375); Red Blood Count 4.40 M/mm3 (4.2-5.4); White Blood Count 11.3 K/mm3 (4.5-10.0)
[2025-02-08 04:49] LABS: Add Urine Microscopic? YES; Appearance Urine Clear (Clear); Glucose Urine UA Negative (Negative); Leukocyte Esterase Ur Negative LEU/UL (Negative); Nitrate Urine Negative (Negative); Non Pathogenic Casts 0-2; Specific Grav Ur 1.018 (1.001-1.035)
[2025-02-08 05:06] LABS: Alanine Aminotransferase 28 U/L (6-35); Albumin Level 4.3 g/dL (3.5-5.1); Alkaline Phosphatase 91 U/L (38-126); Anion Gap 8 mmol/L (4-12); Aspartate Amino Transferase 84 U/L (14-36); Bilirubin,Total 0.5 mg/dL (0.2-1.3); Blood Urea Nitrogen 34 mg/dL (7-17); Calcium 9.8 mg/dL (8.4-10.2); Carbon Dioxide 28 mmol/L (22-30); Chloride 105 mmol/L (98-107); Estimated Glomerular Filt Rate 49; Glucose 153 mg/dL (65-110); Potassium 3.1 mmol/L (3.4-5.0); Sodium 141 mmol/L (137-145); Total Protein 7.5 g/dL (6.3-8.2)
--- NOTE | 2025-02-08 05:07 | ED.BACK ---
HPI - Back Pain/Injury General Chief Complaint: Back Pain/Injury Stated Complaint: R flank pain radiating to R groin with nausea Time Seen by Provider: 02/08/25 04:53 History of Present Illness HPI Narrative: 69-year-old female with a past medical history including hypertension, prediabetes, hyperlipidemia. Patient presents to the emergency department with right flank pain radiating towards her right groin that woke her up suddenly in the middle night several hours ago. Endorses nausea and feeling diaphoretic. No history of stones but family history of kidney stones. She feels like this could be 1 of those. No trauma or injury. No urinary complaints, diarrhea, constipation or blood. No fever, chills. She was otherwise in her state of health. Related Data Home Medications ?Medication ?Instructions ?Recorded ?Confirmed ?Last Taken ?Type latanoprost 0.005 % eye drops 1 drop ophthalmic (eye) DAILY 02/06/20 12/04/24 Unknown History ascorbate calcium (vitamin C) 500 500 mg PO DAILY 10/05/21 12/04/24 Unknown History mg tablet cholecalciferol (vitamin D3) 125 125 mcg PO .QOD 10/20/22 12/04/24 Unknown History mcg (5,000 unit) capsule aspirin 81 mg tablet 81 mg PO DAILY 12/04/24 12/04/24 Unknown History Allergies Allergy/AdvReac Type Severity Reaction Status Date / Time lovastatin Allergy Unknown SOB Verified 02/08/25 04:05 progesterone Allergy Unknown Unknown Verified 02/08/25 04:05 Review of Systems Review of Systems: As reviewed above in HPI [facility] Past Medical History Medical History Easy bruising Prediabetes Lung nodule Emphysema of lung Vitamin B12 deficiency Osteoporosis Basal cell carcinoma (~2017) Squamous cell carcinoma, 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 Normal colonoscopy age 49 Glaucoma History of basal cell cancer 07/2001 and 01/19/2017 both on chest Multinodular goiter Hyperlipidemia LDL goal <100 TIA (transient ischemic attack) Vitamin D deficiency 12/05/2017 Surgical History Surgical History History of breast lump/mass excision (~2012) Right - Papilloma History of blepharoplasty (~2002) History of removal of cyst (~2013) lower right mandibular Hx of dilation and curettage (~2000) Hx of tonsillectomy (~1958) Family History Family History Other Cerebrovascular accident Depression Diabetes mellitus Family history of alcoholism Family history of arthritis Family history of cardiovascular disease Family history of coronary artery disease Family history of lung cancer Family history of malignant neoplasm Family history of obesity Hypertension Social History Social History Smoking packs per day: 0.5 Smoking cigarettes per day: 10.0 Years smoked: 52 Smoking pack-years: 26.00 Smoking status: Current every day smoker Tobacco type: cigarettes Alcohol intake: current Substance use: never Substance use type: does not use Lack of Transportation: No Lack of Food: Never True Current Housing: I Have Housing Concerned About Future Housing: No Difficulty Paying Gas/Electric Bills: No Difficulty Paying for Meds: No Currently Unemployed: No Education: Master's Degree or Higher Difficulty w/ Childcare or Family Care: No Living arrangements: alone Occupation/Education: retired Gender identity (if verbalized by the patient): Female Agree to blood products: Yes Exam Narrative: GENERAL: Uncomfortable appearing, not any acute respiratory distress HEAD: [Normocephalic, atraumatic.] EYES: [PERRLA and EOMI.] ENT: Nares clear, no rhinorrhea or epistaxis. Mucous membranes moist. NECK: Supple. CHEST: [Clear to auscultation. No respiratory distress.] HEART: [Regular rate and rhythm]. No murmur heard. [Normal peripheral pulses.] ABDOMEN: Soft and nondistended, tender to palpation the right flank and right lower quadrant without any peritonitis signs, no rigidity or guarding EXTREMITIES: Normal range of motion. [No edema.] SKIN: Warm, dry, no rash. NEURO: [No focal deficits]. Alert and oriented [x3.] PSYCH: [Normal mood and affect.] Course Vital Signs Vital signs: Vital Signs Temperature 36.9 C 02/08/25 04:06 Pulse Rate 62 02/08/25 04:06 Respiratory Rate 18 02/08/25 04:06 Blood Pressure 163/78 H 02/08/25 04:06 Pulse Oximetry 99 07/18/25 04:06 Oxygen Delivery Room Air 02/08/25 04:06 Temperature 36.9 C 02/08/25 04:06 Pulse Rate 84 02/08/25 05:55 Respiratory Rate 18 02/08/25 05:55 Blood Pressure 131/86 02/08/25 05:55 Pulse Oximetry 100 02/08/25 05:55 Oxygen Delivery Room Air 02/08/25 04:06 MDM - Back Pain/Injury MDM Narrative Medical decision making narrative: 69-year-old female with a past medical history including hypertension, prediabetes, hyperlipidemia. Patient presents to the emergency department with right flank pain radiating towards her right groin that woke her up suddenly in the middle night several hours ago. Endorses nausea and feeling diaphoretic. No history of stones but family history of kidney stones. She feels like this could be 1 of those. No trauma or injury. No urinary complaints, diarrhea, constipation or blood. No fever, chills. She was otherwise in her state of health. Patient does have a tender right flank radiating into her right groin. Hemodynamically she is stable with normal vital signs aside from some chronic hypertension. She is uncomfortable appearing and symptoms to correlate with possible kidney stone pathology. Other etiology such as appendicitis, diverticulitis, colitis, cholecystitis also possible but less likely. She was given Dilaudid and Zofran as well as fluid bolus for symptom control. CT scan without contrast of the abdomen pelvis was ordered for stone protocol. CBC, CMP, urinalysis and lipase obtained. Patient re-evaluated after treatment regimen. Patient re-evaluated had complete symptomatic resolution and pain control at this time. Workup shows a slight leukocytosis but no anemia and. Normal platelet count. Electrolytes are largely unremarkable. Creatinine 1.10 and she was provide fluids here. Unremarkable LFTs. Urinalysis without signs of infection. CT scan shows a 5 mm right UVJ stone without any signs of obstruction. Patient was informed about her CT findings and will be sent home with a combination of Flomax, oxycodone and Tylenol for analgesia and have follow-up with Urology on outpatient basis. She was given return precautions and management instructions and safe for discharge. Medical Records Attestation: I reviewed the patient's medical records. Lab Data Attestation: I reviewed the patient's lab results. 02/08/25 04:33 02/08/25 04:33 Labs: Lab Results 02/08/25 Range/Units 04:33 WBC 11.3 H (4.5-10.0) K/mm3 RBC 4.40 (4.2-5.4) M/mm3 Hgb 13.6 (12.0-15.0) g/dL Hct 41.5 (37.0-47.0) % MCV 94.3 (80-100) fl MCH 30.9 (26-34) pg MCHC 32.8 (32-36) g/dl RDW 14.2 (11.5-14.5) % Plt Count 231 (150-375) k/mm3 MPV 10.6 H (7.4-10.4) fl Immature Gran % (Auto) 0.5 (0-0.5) % Neut % (Auto) 75.6 H (45.5-73.1) % Lymph % (Auto) 17.3 L (18.3-44.2) % [place] % (Auto) 5.1 (2.6-8.5) % Eos % (Auto) 1.0 (0-4.4) % Baso % (Auto) 0.5 (0.2-1.2) % Lymph # (Auto) 1.96 (0.9-3.2) K/mm3 [place] # (Auto) 0.6 (0.1-0.6) K/mm3 Eos # (Auto) 0.1 (0-0.3) K/mm3 Baso # (Auto) 0.1 (0.0-0.1) K/mm3 Abs Immat Gran (auto) 0.06 H (0.00-0.031) K/mm3 Absolute Neuts (auto) 8.5 H (1.3-6.7) K/mm3 Absolute Nucleated RBC 0.000 (0.0-0.012) K/mm3 Nucleated RBC % 0.0 (0.0-0.2) % Sodium 141 (137-145) mmol/L Potassium 3.1 L (3.4-5.0) mmol/L Chloride 105 (98-107) mmol/L Carbon Dioxide 28 (22-30) mmol/L Anion Gap 8 (4-12) mmol/L BUN 34 H D (7-17) mg/dL Creatinine 1.10 H (0.7-1.0) mg/dL Estim Creat Clear Calc Not Reportable Estimated GFR 49 L (59 - ) Glucose 153 H (65-110) mg/dL Calcium 9.8 (8.4-10.2) mg/dL Total Bilirubin 0.5 (0.2-1.3) mg/dL AST 84 H (14-36) U/L ALT 28 (6-35) U/L Alkaline Phosphatase 91 (38-126) U/L Total Protein 7.5 (6.3-8.2) g/dL Albumin 4.3 (3.5-5.1) g/dL Urine Color Yellow (Yellow) Urine Appearance Clear (Clear) Urine pH 6.5 (5.0-9.0) Ur Specific Broughton 1.018 (1.001-1.035) Urine Protein Trace (Negative) mg/dL Urine Glucose (UA) Negative (Negative) mg/dL Urine Ketones Trace H (Negative) mg/dL Ur Blood (Man) Negative (Negative) Urine Nitrate Negative (Negative) Urine Bilirubin Negative (Negative) Urine Urobilinogen 1.0 (<2.0) mg/dL Leukocyte Esterase Rfl Negative (Negative) MEL/UL Urine RBC 0-2 (0-2) /hpf Urine WBC 0-5 (0-3) /hpf Ur Squamous Epith Cells None seen (Few) /hpf Urine Bacteria None seen /hpf Urine Casts 0-2 Imaging Data Attestation: I personally reviewed and interpreted this imaging study as follows: My impression: Impressions Abdomen/Pelvis CT 02/08/25 05:40 Impression: Suspected 5 mm ovoid stone at the right UVJ, though evaluation is difficult due to paucity of intra-abdominal fat. Possible minimal right hydronephrosis. Punctate bilateral nonobstructing additional renal stones. Discharge Plan Discharge Clinical Impression: Calculus of ureterovesical junction (UVJ) Patient Disposition: Home Condition: Stable Instructions: Antibiotic Form, Kidney Stones (ED), How to Strain Your Urine (ED), Flank Pain (ED) Additional Instructions: You have a 5 mm kidney stone in the right side. We will treat this with a combination of Flomax for urinary dilation and pain control medications. Follow-up with your primary care provider and the provided urology team. Return with any emergent concerns such as intractable pain, fevers, inability urinate, dehydration or any other issues. Patient Language: Italian Prescriptions: New acetaminophen [Tylenol Extra Strength] 500 mg tablet 1,000 mg PO TID PRN (Reason: pain) Qty: 30 0RF tamsulosin [Flomax] 0.4 mg capsule 0.4 mg PO DAILY Qty: 20 0RF ondansetron 4 mg tablet,disintegrating 4 mg PO Q8H PRN (Reason: nausea and vomiting) Qty: 10 0RF oxycodone 5 mg tablet 5 mg PO Q8H PRN (Reason: pain) Qty: 10 0RF No Action latanoprost 0.005 % drops 1 drop EACH EYE DAILY ascorbate calcium (vitamin C) 500 mg tablet 500 mg PO DAILY cholecalciferol (vitamin D3) 125 mcg (5,000 unit) capsule 125 mcg PO .QOD aspirin 81 mg tablet 81 mg PO DAILY varenicline tartrate [Chantix Starting Month Box] 0.5 mg (11)- 1 mg (42) tablets,dose pack See Rx Instructions PO PER PKG DIR Qty: 53 0RF Rx Instructions: PO PER PKG DIR cyanocobalamin (vitamin B-12) 1,000 mcg tablet, sublingual 1,000 mcg sublingual DAILY Qty: 90 1RF amlodipine 5 mg tablet 5 mg PO DAILY Qty: 90 1RF rosuvastatin 10 mg tablet 10 mg PO .QHS Qty: 90 2RF lisinopril-hydrochlorothiazide 20-12.5 mg tablet 2 tablet PO DAILY Qty: 180 1RF Follow-up/Referrals: Jamal Luna MD [Primary Care Provider] - Mik Malloy MD [Physician] - 1 Week (5 mm right UVJ stone) Time of Disposition: 06:27
--- OUTSIDE RECORDS SUMMARY | 2025-02-08 05:08 | XMS_ITS | Referral Summary ---
Author Organization [facility] [place] [address] Address [address] [place] [address] Care Team Providers Care Senior C Web Developer Name Role Phone Mehul Montelongo Primary Care Provider [phone] Allergies Active Allergy Reactions Criticality Noted Date Comments Progesterone Micronized Other (See comments) Low Pzhvfsk-Urb-Old Reductase Inhibitors Muscle pain Medium 03/19/2014 Unclassified [...] on file Legal Sex Female 7:03 AM NEGATIVE SPOTTER Gender Identity Not on file Sexual Orientation Not on file Last Filed Vital Signs Vital Sign Reading Time Taken Comments Blood Pressure 130/90 08/08/2024 4:02 PM NEGATIVE SPOTTER Pulse 85 08/08/2024 4:02 PM NEGATIVE SPOTTER Temperature 36.8 C (98.2 F) 08/08/2024 4:02 PM NEGATIVE SPOTTER Respiratory Rate 20 08/08/2024 4:02 PM NEGATIVE SPOTTER Oxygen Saturation 97% 08/08/2024 4:02 PM NEGATIVE SPOTTER Inhaled Oxygen Concentration - - Weight 65.8 kg (145 lb) 08/08/2024 4:02 PM NEGATIVE SPOTTER Height - - Body Mass Index - - Plan of Treatment Not on file Insurance [facility] MEDICARE AD[facility]ANT[facility] Address: [facility] [address] [place] [address] Care Teams Senior C Web Developer Relationship Specialty Start Date End Date Mehul Montelongo [address] [place] [address] PCP - General 11/25/16
--- OUTSIDE RECORDS SUMMARY | 2025-02-08 05:08 | XMS_ITS | Clinical Summary ---
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 Gender Identity Not on file Sexual Orientation Not on file Obstetrics History Last Filed Vital Signs Vital Sign Reading Time Taken Comments Blood Pressure 130/90 08/08/2024 4:02 PM MOLD YARD SUPERVISOR Pulse 85 08/08/2024 4:02 PM MOLD YARD SUPERVISOR Temperature 36.8 C (98.2 F) 08/08/2024 4:02 PM MOLD YARD SUPERVISOR Respiratory Rate 20 08/08/2024 4:02 PM MOLD YARD SUPERVISOR Oxygen Saturation 97% 08/08/2024 4:02 PM MOLD YARD SUPERVISOR Inhaled Oxygen Concentration - - Weight 65.8 kg (145 lb) 08/08/2024 4:02 PM MOLD YARD SUPERVISOR Height - - Body Mass Index - [...] 05/23/2022, Additional history exists Insurance [place] [id number] [facility] MEDICARE ADVANTAGE [facility] MEDIC[facility] Address: [facility] [address] [place] [address] Care Teams Mechanical Ordnance Assembler Relationship Specialty Start Date End Date Mehul Montelongo [address] [place] [address] PCP - General 11/25/16
--- OUTSIDE RECORDS SUMMARY | 2025-02-08 05:08 | XMS_ITS | Clinical Summary ---
Author Organization [facility] Address [address] [place] [address] Phone Care Team Providers Care Creosoting Engineer Name Role Phone Mehul Montelongo MD Primary Care Provider [phone] Allergies Active Allergy Reactions Criticality Noted Date Comments Bfwnttj-Bug-Aim Reductase Inhibitors Muscle Pain Low 03/19/2014 Unclassified [...] series) 2028 Medical Devices Implanted Type Area Sanitation Worker Hosing Machinery Device Identifier Shelf Expiration Date Model / Serial / Lot Putty Osteoselect Dbm 2.5ml [id number] - [id number] Implanted:Qty: 1 on 04/09/2014 by Farhad Estrada DDS at [facility] [employer] 04/11/2014 [id number] / / [id number] Dental Implants Implanted:(Quanti ty not on file) Explanted:(Quanti ty not on file) Insurance RX [facility] DATA Medicare Part B Advance Directives For more information, please contact: [phone] * Full Code (Latest Code Status on File) Date Activated Date Inactivated Comments 04/09/2014 12:20 PM 04/09/2014 5:59 PM Care Teams Creosoting Engineer Relationship Specialty Start Date End Date Mehul Montelongo MD [address] [place] [address] PCP - General Family Practice 03/19/14
--- OUTSIDE RECORDS SUMMARY | 2025-02-08 05:08 | XMS_ITS | Continuity of Care Document ---
Author Organization [facility] [place] Address [address] [place] [address] [address] [place] [address] Phone Care Team Providers Care Mortgage Analyst Name Role Phone Mary Akins Unavailable Unavailable [...] Diagnoses Date Provider Providers Copied on Encounter [facility], [address] [place] [address] [address], [place], [place], [id number], tel:[phone] SEC [facility] No Information 7-201 0 Mable Jerome [address] [facility] , [address], [place], [address], [place]. tel:[phone] [facility], [address] [place] [address] [address], [place], [place], [id number], [place] tel:[phone] SEC [facility] No Information 0-200 9 Mable Jerome [address] [facility] , [address], [place], [address], [place]. tel:[phone] Office/outpat ient Visit, Est [facility], [address] [place] [address] [address], [place], [place], [id number], tel:[phone] SEC [facility] No Information Dec-0 7-200 7 Mable [address] [facility] , [address], [place], [place], [facility], . tel:[phone] [facility], [address] [place] [address] [address], [place], [place], [address], tel:[phone] SEC [facility] No Information Mar-2 0-200 7 Mable Jerome [address] [facility] , [address], [place], [facility], . tel:[phone] Referring Provider: Mary Driver, [address] [facility] [address], [place], [place], [facility]. tel:[phone] [facility], [address] [place] [address] [address], [place], [place], [id number], tel:[phone] [facility] No Information Feb-0 9-200 7 Mable Jerome [facility] , [address], [place], [facility], . tel:[phone] Referring Provider: Mary Driver, [address] [facility] [address], [place], [facility]. tel:[phone] Family History Family Member Type Diagnosis Age At Onset No Information Payers Payer name Insurance type Covered green party ID Sky laukandi(s) [employer] Plan [id number] Social History Type Description Quantity Date Captured [...]
[2025-02-08] MEDS: ONDANSETRON INJ 4 MG/2 ML VIAL IV PUSH (05:11)
[2025-02-08] MEDS: LACTATED RINGERS 1,000 ML 999 ML IV CONT (05:12)
[2025-02-08] MEDS: HYDROmorphone HCL INJ (*CRX) 2 MG/ML VIAL 0.5 MG IV PUSH (05:12)
[2025-02-08 05:55] VITALS: BP 131/86; PULSE 84; RESP 18; O2SAT 100
== END 2025-02-08 06:44 | disposition home or self-care (01) ==
PROVIDERS: Emergency Provider Student in an Organized Health Care Education/Training Program; PCP Family Medicine
DX: N20.1 Calculus of ureter (principal); I10 Essential (primary) hypertension; E78.5 Hyperlipidemia, unspecified; R73.03 Prediabetes; J43.9 Emphysema, unspecified; E53.8 Deficiency of other specified B group vitamins; E55.9 Vitamin D deficiency, unspecified; M81.0 Age-related osteoporosis without current pathological fracture; H40.9 Unspecified glaucoma; F17.210 Nicotine dependence, cigarettes, uncomplicated; Z85.828 Personal history of other malignant neoplasm of skin; Z86.73 Personal history of transient ischemic attack (TIA), and cerebral infarction without residual deficits; Z79.82 Long term (current) use of aspirin; Z79.899 Other long term (current) drug therapy
CPT/HCPCS: 36415; 74176; 80053; 81001; 85025; 96361; 96374; 96375; 99284; J1171; J2405; J7120